=== PATIENT | female | born 1935 | race Hispanic/Latino ===

== ENCOUNTER 2017-05-01 17:41 | Emergency (ER) | payer MEDICARE, OTHER ==
[2017-05-01] MEDS ORDERED: Sodium Chloride 0.9% 500 ML IV STA (18:14)
--- NOTE | 2017-05-01 18:14 | C.PDOC ---
History Of Present Illness <Hazel Martines - Last Filed: 05/01/17 18:53> <Tyler Farah - Last Filed: 05/01/17 20:07> 81 y/o female brought to ED via BLS from [facility] for evaluation of upper abdominal pain that started today. Patient has history of Alzheimer's disease, and is unable to provide detailed history. (Hazel Martines) History Per: Patient History/Exam Limitations: clinical condition Onset/Duration Of Symptoms: Hrs Current Symptoms Are (Timing): Still Present Location Of Pain/Discomfort: RUQ, LUQ Radiation Of Pain To:: None Quality Of Discomfort: "Pain" Associated Symptoms: denies: Nausea, Vomiting, Diarrhea, Loss Of Appetite, Back Pain, Chest Pain, Constipation, Urinary Symptoms Exacerbating Factors: None Alleviating Factors: None Recent travel outside of the [place]: No Additional History Per: Patient Abnormal Vaginal Bleeding: No <Hazel Martines - Last Filed: 05/01/17 18:53> <Tyler Farah - Last Filed: 05/01/17 20:07> Chief Complaint (Nursing): Abdominal Pain Past Medical History Reviewed: Historical Data, Nursing Documentation, Vital Signs - Medical History PMH: Alzheimer's Disease, HTN Family History: States: Unknown Family Hx - Social History Hx Alcohol Use: No Hx Substance Use: No - Immunization History Hx Tetanus Toxoid Vaccination: No Hx Influenza Vaccination: No Hx Pneumococcal Vaccination: No <BobbiHazel - Last Filed: 05/01/17 18:53> Review Of Systems Except As Marked, All Systems Reviewed And Found Negative. (limited) Constitutional: Negative for: Fever Gastrointestinal: Positive for: Abdominal Pain (upper abdomen). Negative for: Nausea, Vomiting, Diarrhea <Hazel Martines - Last Filed: 05/01/17 18:53> Physical Exam - Physical Exam Appears: Non-toxic, No Acute Distress Skin: Normal Color, Warm, Dry Head: Atraumatic, Normacephalic Eye(s): bilateral: Normal Inspection Oral Mucosa: Moist Neck: Normal ROM, Supple Cardiovascular: Rhythm Regular, No Murmur Respiratory: Normal Breath Sounds, No Rales, No Rhonchi, No Wheezing Gastrointestinal/Abdominal: Soft, Tenderness (epigastric), No Guarding, No Rebound Back: Normal Inspection, No CVA Tenderness Extremity: Bilateral: Atraumatic, Normal ROM Neurological/Psych: Oriented x3, Normal Speech <Hazel Martines - Last Filed: 05/01/17 18:53> ED Course And Treatment - Laboratory Results Result Diagrams: 05/01/17 18:30 05/01/17 18:30 ECG: Interpreted By Me, Viewed By Me ECG Rhythm: Sinus Rhythm ECG Interpretation: No Acute Changes Rate From EC (bpm) O2 Sat by Pulse Oximetry: 96 (RA) Pulse Ox Interpretation: Normal Progress Note: Blood work, urinalysis, abdomen US, EKG, CXR ordered. Pt was given IV fluids. On re-eval, pt is resting comfortably, no acute distress. Pending ultrasound result. <Hazel Martines - Last Filed: 05/01/17 18:53> - Laboratory Results Result Diagrams: 05/01/17 18:30 05/01/17 18:30 <Tyler Farah - Last Filed: 05/01/17 20:07> Medical Decision Making <Hazel Martines - Last Filed: 05/01/17 18:53> <Tyler Farah - Last Filed: 05/01/17 20:07> Medical Decision Making: signed over @ 1900, labs wnl, pending abd US for vague epigastric discomfort pt seen and examined, no epigastric discomfort US appreciated, ? mild R hydronephrosis, UA normal OK to d/c back to NH per pt preference (let me out of here right now) and PMD may f/u with Urology, no UTI (Tyler Farah) Disposition - Disposition Disposition Time: 19:00 <Hazel Martines - Last Filed: 05/01/17 18:53> Doctor Will See Patient In The: Office Counseled Patient/Family Regarding: Studies Performed, Diagnosis <Tyler Farah - Last Filed: 05/01/17 20:07> - Disposition Disposition: HOME/ ROUTINE Condition: GOOD Forms: [facility] (Niuean) - Clinical Impression Clinical Impression: Epigastric pain - PA / BODY DESIGNER / Resident Statement MD/DO has reviewed & agrees with the documentation as recorded. - Scribe Statement The provider has reviewed the documentation as recorded by the Scribe <Hazel Martines - Last Filed: 05/01/17 18:53> <Tyler Farah - Last Filed: 05/01/17 20:07> - Scribe Statement Emily Martinez All medical record entries made by the Scribe were at my direction and personally dictated by me. I have reviewed the chart and agree that the record accurately reflects my personal performance of the history, physical exam, medical decision making, and the department course for this patient. I have also personally directed, reviewed, and agree with the discharge instructions and disposition. (Hazel Martines) Physician Patient Turnover Patient Signed Over To: Tyler Farah Handoff Comments: Pending labs and ultrasound. <Hazel Martines - Last Filed: 05/01/17 18:53>
[2017-05-01] MEDS ORDERED: Sodium Chloride 0.9% 500 ML IV ONE (18:32)
[2017-05-01 18:33] LABS: BASO # 0.1 K/uL (0.0-0.2); EOS # 0.1 K/uL (0.0-0.7); EOS % 0.6 % (0.0-4.0); LYMPH % 18.6 % (20.0-40.0); MEAN CELL VOLUME 82.8 fL (81.0-99.0); MEAN CORPUSCULAR HEMOGLOBIN 28.5 pg (27.0-31.0); MEAN CORPUSCULAR HGB CONC 34.4 g/dL (33.0-37.0); MEAN PLATELET VOLUME 7.6 fL (7.2-11.7); MONO # 0.6 K/uL (0.0-0.8); MONO % 5.6 % (0.0-10.0); RED CELL DISTRIBUTION WIDTH 14.1 % (11.5-14.5); WHITE BLOOD COUNT 10.7 K/uL (4.8-10.8)
[2017-05-01 18:41] LABS: CHLORIDE 100 mmol/L (98-107); POTASSIUM 3.6 mmol/L (3.6-5.2); SODIUM 140 mmol/L (132-148)
[2017-05-01 18:43] LABS: ALB/GLOB RATIO 1.1 (1.0-2.1); AMYLASE 202 U/L (30-110); AST/SGOT 26 U/L (14-36); BILIRUBIN,TOTAL 0.5 mg/dL (0.2-1.3); CARBON DIOXIDE 27 mmol/L (22-30); GFR AFRICAN-AMERICAN > 60; TOTAL PROTEIN 7.3 g/dL (6.3-8.3)
[2017-05-01 18:44] LABS: ALKALINE PHOSPHATASE 108 U/L (38-126); ALT/SGPT 29 U/L (9-52); BLOOD UREA NITROGEN 16 mg/dL (7-17); CALCIUM 8.9 mg/dl (8.6-10.4); GLUCOSE,RANDOM 87 mg/dL (65-105)
[2017-05-01 18:48] LABS: RBC URINE < 1 /hpf (0-3); URINE BILIRUBIN NEGATIVE (NEGATIVE); URINE BLOOD NEGATIVE (NEGATIVE); URINE COLOR Straw (YELLOW); URINE GLUCOSE (UA) NORMAL (Normal); URINE KETONE NEGATIVE (NEGATIVE); URINE LEUKOCYTE ESTERASE TRACE Leu/uL (Negative); URINE PROTEIN NEGATIVE (NEGATIVE); URINE UROBILINOGEN NORMAL mg/dL (0.2-1.0); WBC URINE 1 /hpf (0-5)
[2017-05-01 22:51] VITALS: BP 132/75; PULSE 75; RESP 18; TEMP 98.5; O2SAT 99
--- NOTE | 2017-05-02 07:49 | RAD ---
PROCEDURE: CHEST RADIOGRAPH, 1 VIEW HISTORY: epigastric pain COMPARISON: None available. FINDINGS: LUNGS: No evidence of focal infiltrate or consolidation in the lungs. No evidence of subdiaphragmatic free air PLEURA: No pneumothorax or pleural fluid seen. CARDIOVASCULAR: Normal. OSSEOUS STRUCTURES: No significant abnormalities. VISUALIZED UPPER ABDOMEN: No evidence of subdiaphragmatic free air. OTHER FINDINGS: None. IMPRESSION: No active disease.
--- NOTE | 2017-05-02 08:33 | US ---
HISTORY: epigastric COMPARISON: None. TECHNIQUE: Sonographic evaluation of the right upper quadrant of the abdomen. FINDINGS: LIVER: Measures 12.1 cm in length. Normal echogenicity of the liver parenchyma. No mass. No intrahepatic bile duct dilatation. GALLBLADDER: Unremarkable. No gallstones. COMMON BILE DUCT: Measures 2 mm. No stones. No dilatation. PANCREAS: Unremarkable as visualized. No mass. No ductal dilatation. RIGHT KIDNEY: Measures 8.7 x 4.5 x 4.6 cm in length. There is mild right hydronephrosis. The right renal echogenicity is within the normal limits AORTA: No aneurysmal dilatation. IVC: Unremarkable. OTHER FINDINGS: None . IMPRESSION: Mild right hydronephrosis. If clinically warranted further assessment of the abdomen and pelvis by CT is suggested to exclude distal right renal collecting system obstruction. No evidence of cholelithiasis or cholecystitis. Preliminary report was submitted by [facility].
--- NOTE | 2017-05-02 18:01 | CARD ---
APPROVED REPORT EKG Measurement Heart [id number] <Conclusion> Normal sinus rhythm Normal ECG
== END 2017-05-01 22:46 | disposition home or self-care (01) ==
LOC: C.ER 17:41
DX: R10.13 Epigastric pain (principal)
CPT/HCPCS: 71010; 76705; 80053; 81001; 82150; 82550; 82553; 83690; 84484; 85025; 85610; 85730; 93005; 99284; J7040